=== PATIENT | female | born 1975 | race Caucasian/White ===

== ENCOUNTER 2017-11-28 16:48 | Emergency (ER) | payer SELFPAY ==
[2017-11-28] MEDS ORDERED: PREDNISONE 20 MG TABLET PO ONE (17:35)
[2017-11-28] MEDS ORDERED: IPRATROPIUM/ALBUTEROL 0.5-2.5 MG/3 ML AMPUL NEB ONE ×2 (17:35→19:37)
[2017-11-28] MEDS ORDERED: ALBUTEROL SULFATE 0.083% NEB 2.5 MG/3 ML AMPUL NEB ONE (17:35)
--- NOTE | 2017-11-28 17:36 | ER Document Report ---
ED Medical Screen (RME) - General Chief Complaint: Cough Stated Complaint: COUGH, WHEEZING, BACK PAIN Time Seen by Provider: 11/28/17 17:35 Mode of Arrival: Ambulatory Information source: Patient Notes: 42-year-old smoker in respiratory distress with a respiratory rate of 32 and expiratory wheezing and sounds very tight bilateral. Pulse ox in pit was 96% with a respiratory rate of 20 at that time. TRAVEL OUTSIDE OF THE [place] IN LAST 30 DAYS: No - Related Data Allergies/Adverse Reactions: No Known Allergies Allergy (Unverified 11/28/17 16:51) Physical Exam - Vital signs Vitals: Temp Pulse Resp BP Pulse Ox 98.3 F 101 H 20 131/72 H 96 11/28/17 16:54 11/28/17 16:54 11/28/17 16:54 11/28/17 16:54 11/28/17 16:54 Course - Vital Signs Vital signs: Temp Pulse Resp BP Pulse Ox 98.3 F 101 H 20 131/72 H 96 11/28/17 16:54 11/28/17 16:54 11/28/17 16:54 11/28/17 16:54 11/28/17 16:54
[2017-11-28] MEDS ORDERED: RINGERS SOLUTION,LACTATED 1,000 ML IV PRN (18:12)
[2017-11-28] MEDS ORDERED: IBUPROFEN 400 MG TABLET PO ONE (19:37)
[2017-11-28] MEDS ORDERED: PROPOFOL INJ 200 MG/20 ML VIAL IV PRN (19:41)
[2017-11-28] MEDS: MAGNESIUM SULFATE/D5W 1 GM/100 ML RTUPB IV SCH ×2 (19:48→21:03)
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
--- NOTE | 2017-11-28 20:15 | RADIOLOGY REPORT (SQ) ---
EXAM DESCRIPTION: CHEST 2 VIEWS COMPLETED DATE/TIME: 11/28/2017 7:46 pm REASON FOR STUDY: cough COMPARISON: None. EXAM PARAMETERS: NUMBER OF VIEWS: two views TECHNIQUE: Digital Frontal and Lateral radiographic views of the chest acquired. RADIATION DOSE: NA LIMITATIONS: none FINDINGS: LUNGS AND PLEURA: No opacities, masses or pneumothorax. No pleural effusion. MEDIASTINUM AND HILAR STRUCTURES: No masses or contour abnormalities. HEART AND VASCULAR STRUCTURES: Heart normal size. No evidence for failure. BONES: No acute findings. HARDWARE: None in the chest. OTHER: No other significant finding. IMPRESSION: NO ACUTE RADIOGRAPHIC FINDING IN THE CHEST. TECHNICAL DOCUMENTATION: JOB ID: [id number] [employer]- All Rights Reserved Reading location - IP/workstation name: [email or web address]
[2017-11-28] MEDS ORDERED: ALBUTEROL SULFATE HFA (90 MCG/PUFF) 8 GM MDI (1 MDI/ER DISP) IH ONE (20:50)
[2017-11-28 21:10] VITALS: BP 133/75
== END 2017-11-28 21:18 | disposition home or self-care (01) ==
LOC: ER 16:48
DX: R06.2 Wheezing (principal); R06.02 Shortness of breath; R05 Cough; M54.9 Dorsalgia, unspecified; F17.200 Nicotine dependence, unspecified, uncomplicated
CPT/HCPCS: 94640 ×2; 99285; 96365; 71046; J3490 ×2; J3475; J7512; J7620

== ENCOUNTER 2018-02-16 01:02 | Inpatient (IN) | payer SELFPAY ==
[2018-02-16] MEDS ORDERED: CEFTRIAXONE INJ 1000 MG VIAL IV ONE (01:53)
[2018-02-16] MEDS ORDERED: VANCOMYCIN HCL INJ 1000 MG VIAL IV ONE (01:53)
[2018-02-16] MEDS ORDERED: RINGERS SOLUTION,LACTATED 2,000 ML IV ONE (01:54)
--- NOTE | 2018-02-16 01:58 | ER Document Report ---
ED General - General Stated Complaint: POSSIBLE INFECTION Time Seen by Provider: 02/16/18 01:13 Notes: Patient is a 42-year-old female without chronic medical problems who presents with approximately 1 week of a progressively worsening left breast abscess that has opened and drained with associated necrosis. The patient notes that she has a spreading cellulitis around the area and has an associated dull, throbbing , severe pain to the left breast. Touching the area worsens the pain. Nothing improves the pain. She states the area started after she injected methamphetamine into a vein on her breast. She states that she has felt generally unwell but has not recorded a fever at home. No history of similar symptoms in the past. She does not have a primary care physician. TRAVEL OUTSIDE OF THE [place] IN LAST 30 DAYS: No - Related Data Allergies/Adverse Reactions: No Known Allergies Allergy (Unverified 11/28/17 16:51) Past Medical History - General Information source: Patient - Social History Smoking Status: Never Smoker Frequency of alcohol use: None Drug Abuse: Marijuana, Methamphetamine Lives with: Family Family History: Reviewed & Not Pertinent Renal/ Medical History: Denies: Hx Peritoneal Dialysis Psychiatric Medical History: Reports: Hx Attention Deficit Hyperactivity Disorder Past Surgical History: Reports: Hx Gynecologic Surgery - lap for ovarian torsion Review of Systems - Review of Systems Notes: Constitutional: Negative for fever. HENT: Negative for sore throat. Eyes: Negative for visual changes. Cardiovascular: Negative for chest pain. Respiratory: Negative for shortness of breath. Gastrointestinal: Negative for abdominal pain, vomiting or diarrhea. Genitourinary: Negative for dysuria. Musculoskeletal: Negative for back pain. Skin: Positive for left breast abscess Neurological: Negative for headaches, weakness or numbness. 10 point ROS negative except as marked above and in HPI. Physical Exam - Vital signs Interpretation: Tachycardic Notes: PHYSICAL EXAMINATION: GENERAL: Somewhat ill in appearance but in no acute distress HEAD: Atraumatic, normocephalic. EYES: Pupils equal round and reactive to light, extraocular movements intact, sclera anicteric, conjunctiva are normal. ENT: nares patent, oropharynx clear without exudates. Moist mucous membranes. NECK: Normal range of motion, supple without lymphadenopathy LUNGS: Breath sounds clear to auscultation bilaterally and equal. No wheezes rales or rhonchi. HEART: Regular tachycardia without murmurs ABDOMEN: Soft, nontender, normoactive bowel sounds. No guarding, no rebound. No masses appreciated. EXTREMITIES: Normal range of motion, no pitting or edema. No cyanosis. NEUROLOGICAL: No focal neurological deficits. Moves all extremities spontaneously and on command. PSYCH: Moderately anxious SKIN: Warm, Dry, normal turgor, there is a large, necrotic, open abscess on the left central breast with almost the entirety of the breast covered in a cellulitis Course - Re-evaluation Re-evalutation: 02/16/18 01:54 Patient presents with an extensive 4 x 6 cm open, necrotic abscess of the left breast with almost the entirety of the breast covered and associated cellulitis. She does present tachycardic but is otherwise well in appearance. The patient has extremely poor IV access due to history of IV drug abuse. I did spend approximately 20 minutes at the bedside assisting nursing staff and attempting to get an IV. After multiple attempts we were able to get a single 20-gauge IV which we will begin vancomycin, IV fluids and ceftriaxone through. We will work on obtaining a second point of IV access. Also discussed with the surgeon on-call as this will likely require operative management. 02/16/18 02:41 Dr. Pelaez has seen and evaluated the patient. He will admit her for operative management. She remains n.p.o., receiving IV fluids, IV antibiotics. - Laboratory Result Diagrams: 02/16/18 02:15 02/16/18 02:15 Laboratory results interpreted by me: 02/16/18 02/16/18 02/16/18 02:15 02:15 02:15 WBC 19.0 H Absolute Neutrophils 12.7 H Absolute Lymphocytes 4.8 H Carbon Dioxide 33 H Glucose 119 H Lactic Acid 2.3 H Discharge - Discharge Clinical Impression: Left breast abscess, Cellulitis of breast Sepsis Qualifiers: Sepsis type: sepsis due to unspecified organism Qualified Code(s): A41.9 - Sepsis, unspecified organism Condition: Fair Disposition: ADMITTED INPATIENT Admitting Provider: Surgicalist Unit Admitted: Surgical Floor
[2018-02-16 02:29] LABS: ABSOLUTE BASOPHILS # (AUTO) 0.1 10^3/uL (0.0-0.2); ABSOLUTE EOSINOPHILS # (AUTO) 0.1 10^3/uL (0.0-0.6); ABSOLUTE LYMPHOCYTES (AUTO) 4.8 10^3/uL (0.5-4.7); ABSOLUTE MONOCYTES (AUTO) 1.2 10^3/uL (0.1-1.4); ABSOLUTE NEUT (AUTO) 12.7 10^3/uL (1.7-8.2); BASOPHILS % (AUTO) 0.7 % (0-2); EOSINOPHILS % (AUTO) 0.5 % (0-6); HEMATOCRIT 43.4 % (36.0-47.0); HEMOGLOBIN 14.9 g/dL (12.0-15.5); LYMPHOCYTES % (AUTO) 25.5 % (13-45); MEAN CORPUSCULAR HEMOGLOBIN 29.9 pg (27.0-33.4); MEAN CORPUSCULAR HGB CONC 34.4 g/dL (32.0-36.0); MEAN CORPUSCULAR VOLUME 87 fl (80-97); MONOCYTES % (AUTO) 6.2 % (3-13); PLATELET COUNT 424 10^3/uL (150-450); RED BLOOD COUNT 4.99 10^6/uL (3.72-5.28); RED CELL DISTRIBUTION WIDTH 13.2 % (11.5-14.0); SEGMENTED NEUTROPHILS % (AUTO) 67.1 % (42-78); TOTAL CELLS COUNTED % (AUTO) 100 %
[2018-02-16 02:43] LABS: ANION GAP 9 (5-19); BLOOD UREA NITROGEN 10 mg/dL (7-20); CALCIUM 9.6 mg/dL (8.4-10.2); CARBON DIOXIDE 33 mmol/L (22-30); CHLORIDE 100 mmol/L (98-107); GLUCOSE 119 mg/dL (75-110); SODIUM 141.8 mmol/L (137-145)
[2018-02-16 02:47] LABS: POTASSIUM 3.6 mmol/L (3.6-5.0)
[2018-02-16] MEDS ORDERED: RINGERS SOLUTION,LACTATED 1,000 ML IV ONE (02:52)
--- NOTE | 2018-02-16 02:56 | PDOC H&P ---
History of Present Illness Patient complains of: Left breast pain History of Present Illness: TONNY NAILS is a 42 year old female Resents the emergency department complaining of left breast pain. Patient has been shooting methamphetamines into her veins and into her left breast and several days ago developed swelling, drainage, infection in her left breast. She seen in the emergency department where she is found to have an abscess left breast, leukocytosis, lactic acidosis all consistent with sepsis. She is being resuscitated with IV fluids. Surgery was consulted patient was advised admission definitive management Past Medical History Past Medical History: Obesity, PTSD, hyperactivity and attention deficit disorder, depression, IV drug abuse, meningitis Psychiatric Medical History: Reports: Attention Deficit Hyperactivity Disorder Past Surgical History Past Surgical History: Exploratory surgery for torsed ovary Social History Information Source: Patient Lives with: Alone Smoking Status: Current Every Day Smoker Hx Recreational Drug Use: Yes Hx Prescription Drug Abuse: No Family History Family History: None Parental Family History Reviewed: Yes Children Family History Reviewed: Yes Sibling(s) Family History Reviewed.: Yes Medication/Allergy Home Medications: Albuterol Sulfate [Proair HFA Inhalation Aerosol 8.5 gm MDI] 2 puff IH Q4H PRN # 1 mdi 11/28/17 Prednisone [Deltasone 20 mg Tablet] 3 tab PO DAILY 5 Days tablet 11/28/17 Allergies/Adverse Reactions: No Known Allergies Allergy (Unverified 11/28/17 16:51) Review of Systems Constitutional: PRESENT: as per HPI Eyes: ABSENT: visual disturbances Ears: ABSENT: hearing changes Respiratory: PRESENT: dyspnea Physical Exam General appearance: PRESENT: mild distress Head exam: PRESENT: normocephalic Eye exam: PRESENT: EOMI Mouth exam: PRESENT: dry mucosa Cardiovascular exam: PRESENT: RRR Pulses: PRESENT: normal carotid pulses, normal radial pulses Rectal exam: PRESENT: deferred Extremities exam: PRESENT: other - Scattered bruising consistent with IV access some failed Neurological exam: PRESENT: alert, awake Psychiatric exam: PRESENT: agitated Skin exam: PRESENT: other - Left breast with large 5 cm necrotic skin flap; surrounding cellulitis active purulent discharge Results Laboratory Results: 02/16/18 02:15 02/16/18 02:15 02/16/18 02/16/18 02/16/18 02:15 02:15 02:15 WBC 19.0 H RBC 4.99 Hgb 14.9 Hct 43.4 MCV 87 MCH 29.9 MCHC 34.4 RDW 13.2 Plt Count 424 Seg Neutrophils % 67.1 Lymphocytes % 25.5 Monocytes % 6.2 Eosinophils % 0.5 Basophils % 0.7 Absolute Neutrophils 12.7 H Absolute Lymphocytes 4.8 H Absolute Monocytes 1.2 Absolute Eosinophils 0.1 Absolute Basophils 0.1 Sodium 141.8 Potassium 3.6 Chloride 100 Carbon Dioxide 33 H Anion Gap 9 BUN 10 Creatinine 0.80 Est GFR ( Amer) > 60 Est GFR (Non-Af Amer) > 60 Glucose 119 H Lactic Acid 2.3 H Calcium 9.6 Serum HCG, Qual 02/16/18 02:15 WBC RBC Hgb Hct MCV MCH MCHC RDW Plt Count Seg Neutrophils % Lymphocytes % Monocytes % Eosinophils % Basophils % Absolute Neutrophils Absolute Lymphocytes Absolute Monocytes Absolute Eosinophils Absolute Basophils Sodium Potassium Chloride Carbon Dioxide Anion Gap BUN Creatinine Est GFR ( Amer) Est GFR (Non-Af Amer) Glucose Lactic Acid Calcium Serum HCG, Qual NEGATIVE Assessment & Plan - Diagnosis (1) Left breast abscess Is this a current diagnosis for this admission?: Yes Plan: Impression: Self-inflicted abscess resulting in sepsis left breast due to IV methamphetamine injection requiring operative drainage Recommendations: 1. Keep n.p.o. on IV fluids with fluid resuscitation, intravenous antibiotics 2. We will take patient to the main operating room later this morning for drainage left breast abscess by Dr. Murry, surgicalist. (2) Smoker Is this a current diagnosis for this admission?: Yes (3) IV drug abuse Is this a current diagnosis for this admission?: Yes (4) Cellulitis of breast Is this a current diagnosis for this admission?: Yes (5) Sepsis Qualifiers: Sepsis type: sepsis due to unspecified organism Qualified Code(s): A41.9 - Sepsis, unspecified organism - Time Time Spent: 30 to 50 Minutes Critical Time spent with patient: Less than 15 minutes Medications reviewed and adjusted accordingly: Yes Anticipated discharge: Home Within: within 24 hours - Inpatient Certification Based on my medical assessment, after consideration of the patient's comorbidities, presenting symptoms, or acuity I expect that the services needed warrant INPATIENT care.: Yes I certify that my determination is in accordance with my understanding of Medicare's requirements for reasonable and necessary INPATIENT services [42 CFR 412.3e].: Yes Medical Necessity: Need For IV Fluids, Need for Pain Control, Need for IV Antibiotics, Need for Surgery
[2018-02-16] MEDS ORDERED: RINGERS SOLUTION,LACTATED 1,000 ML IV PRN (02:59)
[2018-02-16] MEDS: ACETAMINOPHEN INJ/PF 1000 MG/100 ML SDV IV SCH ×2 (05:15→13:52)
[2018-02-16] MEDS: CEFAZOLIN 1 GM/D5W RTU 1 GM/50 ML RTUPB IV SCH ×3 (06:45→22:10)
[2018-02-16] MEDS: DOCUSATE SODIUM 100 MG CAPSULE PO SCH ×2 (09:21→18:00)
[2018-02-16] MEDS ORDERED: SUCCINYLCHOLINE CHLORIDE INJ 200 MG/10 ML VIAL ONE (11:02)
[2018-02-16] MEDS ORDERED: DEXAMETHASONE SOD PHOSPHATE INJ 4 MG/1 ML VIAL ONE (11:02)
[2018-02-16] MEDS ORDERED: ONDANSETRON HCL INJ/PF 4 MG/2 ML SDV ONE (11:02)
[2018-02-16 12:49] LABS: URINE BARBITURATES SCREEN NEGATIVE; URINE COCAINE SCREEN NEGATIVE; URINE MARIJUANA (THC) SCREEN NEGATIVE; URINE METHADONE SCREEN NEGATIVE
[2018-02-16 12:57] LABS: URINE PHENCYCLIDINE SCREEN NEGATIVE
[2018-02-16 13:23] LABS: URINE BENZODIAZEPINES SCREEN UNCONFIRMED POSITIVE
[2018-02-16] MEDS ORDERED: MIDAZOLAM 2 MG/2 ML INJ ONE (15:35)
[2018-02-16] MEDS ORDERED: PROPOFOL INJ 200 MG/20 ML VIAL IV ONE (15:35)
[2018-02-16] MEDS ORDERED: FENTANYL CITRATE INJ/PF 100 MCG/2 ML AMPUL ONE (15:35)
[2018-02-16] MEDS ORDERED: IPRATROPIUM/ALBUTEROL 0.5-2.5 MG/3 ML AMPUL NEB ONE (15:38)
[2018-02-16] MEDS ORDERED: LIDOCAINE 1% INJ-PF (10 MG/ML) 30 ML SDV ONE (15:39)
[2018-02-16] MEDS ORDERED: DEXMEDETOMIDINE INJ 80 MCG/20 ML VIAL IV ONE (15:45)
[2018-02-16] MEDS ORDERED: PROMETHAZINE HCL INJ 25 MG/1 ML VIAL IV PRN (16:26)
[2018-02-16] MEDS ORDERED: FENTANYL CITRATE INJ/PF 100 MCG/2 ML AMPUL IV PRN ×3 (16:26)
[2018-02-16] MEDS: ACETAMINOPHEN 1,000 MG/100 ML RTUPB IV SCH ×2 (18:00→23:11)
[2018-02-16] MEDS: KETOROLAC TROMETHAMINE INJ/PF 30 MG/1 ML SDV IV PRN (20:16)
[2018-02-16] MEDS ORDERED: LORAZEPAM 0.5 MG TABLET PO ONE (22:45)
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
[2018-02-17] MEDS: KETOROLAC TROMETHAMINE INJ/PF 30 MG/1 ML SDV IV PRN ×2 (02:48→08:39)
[2018-02-17] MEDS: CEFAZOLIN 1 GM/D5W RTU 1 GM/50 ML RTUPB IV SCH (05:38)
[2018-02-17] MEDS: ACETAMINOPHEN 1,000 MG/100 ML RTUPB IV SCH (05:39)
[2018-02-17 08:36] VITALS: BP 103/61
[2018-02-17] MEDS ORDERED: CLINDAMYCIN HCL 150 MG CAPSULE PO SCH (10:00)
--- NOTE | 2018-02-18 04:32 | DISCHARGE SUMMARY E ---
Discharge Summary NAME: TONNY NAILS : 1975 AGE: 42Y ADMITTED: 02/16/2018 DISCHARGED: 02/17/2018 FINAL DIAGNOSIS: Abscess left breast and necrosis of the skin. PROCEDURE DONE: Incision and drainage and debridement of left breast abscess. Date: 02/16/18. Surgeon: Dr. Galeana. HOSPITAL COURSE: This is a 42-year-old female who injected her left breast vein with heroin and subsequently developed an abscess. She was taken to the OR on 02/16/18, where an area of necrotic skin was excised, roughly measuring about 7 x 4 cm. There was some area of abscess underneath that was sent for culture. Pulse lavage was done of the abscess cavity with 3 L of saline in the OR. Postoperatively, on 02/17/18 the packing was removed and the wound without any bleeding. It looks clean, but somewhat reddened around surrounding area. The patient is afebrile. A wet-to-dry dressing was placed. PLAN: The patient was instructed to wash the wound with soap and water when she showers on a daily basis and just put a dry dressing into it. A prescription for clindamycin 300 mg p.o. 4 times a day for 10 days was given to the patient on discharge on 02/17/18. Also a prescription for Toradol 10 mg p.o. q. 8 hours p.r.n. for 15 pills. She was then instructed [facility]. DICTATING PHYSICIAN: SHELLI GALEANA M.D. [id number] Y#: [id number] ID: [id number] JOB#: [id number] ACCT: [id number] cc:Betty RASMUSSEN MD, M.D. . [facility],
== END 2018-02-17 10:42 | disposition home or self-care (01) | DRG 585 ==
LOC: ER 01:02 → EH 02:58 → 4N 04:10
PROVIDERS: ADMIT Surgery; ATTEND Surgery
PROC: 0HBU0ZZ Excision of Left Breast, Open Approach (ICD-10-PCS; principal; 2018-02-16 11:00)
DX: N61.1 Abscess of the breast and nipple (principal); I87.2 Venous insufficiency (chronic) (peripheral); F15.10 Other stimulant abuse, uncomplicated; E66.9 Obesity, unspecified; F43.10 Post-traumatic stress disorder, unspecified; F90.9 Attention-deficit hyperactivity disorder, unspecified type; F17.200 Nicotine dependence, unspecified, uncomplicated
CPT/HCPCS: 36415; 400; 80048; 80307; 83605; 84703; 85025; 87040; 87070; 87075; 87077; 87186; 87205; J0131; J0330; J0690; J0696; J1100; J1885; J2250; J2405; J2704; J3010; J3370; J3490; J7120; J7620